=== PATIENT | male | born 1960 | race African-American/Black ===

== ENCOUNTER 2023-12-03 20:07 | Emergency (ER) | payer MEDICAID ==
[~2023-12-03] VITALS: Ht 180.3 cm; Wt 114.0 kg
[~2023-12-03 20:07] MED LIST: APIX5TAB MT; CLOP-31 MT; INSU100I28 SQ; LIP40 PO
[2023-12-03 20:18] VITALS: BP_SYST 129; TEMP 97.8; O2SAT 100
[2023-12-03 20:19] VITALS: PULSE 75
[2023-12-03 21:47] LABS: BASOPHILS % 0.2 % (0.0-2.0); EOSINOPHILS % 0.6 % (0.0-5.0); HEMOGLOBIN. 12.1 g/dL (14.0-18.0); LYMPHOCYTES % 25.3 % (20.0-50.0); MEAN CORPUSCULAR HEMOGLOBIN 32.5 pg (28.0-32.0); MEAN CORPUSCULAR HGB CONC 34.7 g/dL (31.0-37.0); MEAN CORPUSCULAR VOLUME 93.9 fL (80.0-94.0); MEAN PLATELET VOLUME 8.8 fl (7.4-10.4); MONOCYTES % 7.3 % (2.0-8.0); NEUTROPHILS % 66.6 % (40.0-76.0); PLATELET 217 x1000/uL (130-400); RED BLOOD CELL COUNT 3.73 mill/uL (4.7-6.1); RED CELL DISTRIBUTION WIDTH 12.9 % (11.6-14.6); WHITE BLOOD COUNT 7.4 x1000/uL (4.5-11.0)
[2023-12-03 21:53] LABS: CHLORIDE 107 mEq/L (98-107); POTASSIUM 3.9 mEq/L (3.5-5.1); SODIUM 141 mEq/L (136-145)
[2023-12-03 21:54] LABS: CALCIUM 9.5 mg/dL (8.7-10.4); CARBON DIOXIDE 30 mEq/L (21-32)
[2023-12-03 21:59] LABS: CREATININE 1.1 mg/dL (0.6-1.3); GLUCOSE 119 mg/dL (70-105); UREA NITROGEN BLOOD 11 mg/dL (9-23)
[2023-12-03 22:04] LABS: TROPONIN I HIGH SENSITIVITY 55 ng/L (3.0-53)
== END 2023-12-04 00:25 | disposition home or self-care (01) ==
LOC: ER 20:07
DX: R00.2 Palpitations (principal); E11.9 Type 2 diabetes mellitus without complications; I10 Essential (primary) hypertension; Z88.5 Allergy status to narcotic agent
CPT/HCPCS: 36415; 71045; 80048; 84484; 85025; 93005; 99284